=== PATIENT | male | born 1955 | race Caucasian/White ===

== ENCOUNTER 2024-09-05 11:32 | Emergency (ER) | payer MEDICARE ==
[~2024-09-05] VITALS: Ht 167.6 cm; Wt 84.1 kg
[2024-09-05 11:40] VITALS: TEMP 98.2
[2024-09-05] MEDS ORDERED: ATEN-72 PO (11:41)
[2024-09-05] MEDS ORDERED: ASPI-1450 PO (11:41)
[2024-09-05 12:24] VITALS: BP 102/48; PULSE 56; RESP 16; O2SAT 99
[2024-09-05 12:35] LABS: BASOPHILS % (AUTO) 0.7 % (0.0-2.0); EOSINOPHILS % (AUTO) 2.2 % (1.0-6.0); HEMATOCRIT 46.2 % (41-53); HEMOGLOBIN 15.2 g/dL (13.5-17.5); LYMPHOCYTES # (AUTO) 2.1 K/uL (1.0-4.8); LYMPHOCYTES % (AUTO) 28.5 % (22.0-44.0); MEAN CORPUSCULAR HEMOGLOBIN 31.4 pg (26.0-34.0); MEAN CORPUSCULAR HGB CONC 32.8 G/dL (31.0-37.0); MEAN CORPUSCULAR VOLUME 96 fL (80-100); MONOCYTES # (AUTO) 0.6 K/uL (0.1-1.0); MONOCYTES % (AUTO) 8.4 % (2.0-9.0); NEUTROPHILS # (AUTO) 4.4 K/uL (1.8-7.7); NEUTROPHILS % (AUTO) 60.2 % (40.0-70.0); PLATELET COUNT (AUTO) 210 K/uL (150-450); RED BLOOD CELL COUNT(AUTO) 4.83 MIL/uL (4.50-5.90); RED CELL DISTRIBUTION WIDTH 13.5 % (11.5-14.5); WHITE BLOOD COUNT (AUTO) 7.3 K/uL (4.5-11.0)
[2024-09-05] MEDS: ASPIRIN 81 MG CHEWABLE TABLET PO ONE (12:44)
[2024-09-05 12:46] LABS: PROTHROMBIN TIME 11.3 SEC (9.4-11.6)
[2024-09-05 12:49] LABS: ANION GAP 3 mmol/L (8-16); CALCIUM, TOTAL 9.1 mg/dL (8.8-10.5); CARBON DIOXIDE 32 mmol/L (22-29); CHLORIDE 105 mmol/L (98-107); CREATININE 0.95 mg/dL (0.60-1.30); GLOMERULAR FILTR. RATE CALC > 60 mL/min (>60); GLUCOSE,RANDOM 114 mg/dL (70-110); POTASSIUM 4.1 mmol/L (3.5-5.1); SODIUM SERUM 140 mmol/L (136-145); TROPONIN I-HIGH SENSITIVITY 46 ng/L (<76); UREA NITROGEN, BLOOD 18 mg/dL (7-18)
[2024-09-05 12:58] LABS: B-TYPE NATRIURETIC PEPTIDE 110 pg/mL (0-100)
== END 2024-09-05 13:00 | disposition left against medical advice (07) ==
LOC: EMS 11:32
DX: R07.89 Other chest pain (principal); R11.2 Nausea with vomiting, unspecified; Z53.21 Procedure and treatment not carried out due to patient leaving prior to being seen by health care provider
CPT/HCPCS: 80048; 83880; 84484; 85025; 85610; 85730; 93005